=== PATIENT | female | born 1980 | race Caucasian/White ===

== ENCOUNTER 2016-12-21 11:45 | Emergency (ER) | payer OTHER ==
[~2016-12-21] VITALS: Ht 160 cm; Wt 63.5 kg
[2016-12-21 12:21] VITALS: BP 134/95
--- NOTE | 2016-12-21 14:48 | NUR ---
PATIENT LEFT WITHOUT BEING SEEN BY DR. KATE. NO FURTHER CARE PROVIDED FOR PATIENT.
== END 2016-12-21 14:48 | disposition left against medical advice (07) ==
LOC: MED 11:45
DX: J02.9 Acute pharyngitis, unspecified (principal); Z53.21 Procedure and treatment not carried out due to patient leaving prior to being seen by health care provider